=== PATIENT | female | born 1965 | race Caucasian/White ===

== ENCOUNTER 2016-11-28 16:51 | Emergency (ER) | payer SELFPAY ==
[~2016-11-28] VITALS: Ht 162.6 cm; Wt 61.2 kg
[~2016-11-28 16:51] MED LIST: CIPR500T94 PO; HYDR-971 PO; PHEN100T82 PO; PROM25TA10 PO
[2016-11-28 17:03] VITALS: BP 128/81
[2016-11-28] MEDS ORDERED: TETRACAINE 0.5% OPHTH SOLUTION 4ML BOTTLE. OD ONE (17:15)
[2016-11-28] MEDS ORDERED: EYE-STREAM OPHTH SOLUTION 120 ML BOTTLE. OD ONE (17:15)
[2016-11-28] MEDS ORDERED: FLUORESCEIN OPHTH TEST STRIP. OD ONE (17:15)
--- NOTE | 2016-11-28 17:19 | PHYS DOC ---
Past Medical History Past Medical History: No Pertinent History Past Surgical History: Tubal ligation Additional Past Surgical Histo: nasal surgery Alcohol Use: Occasionally Drug Use: None Adult General Chief Complaint Chief Complaint: EYE PROBLEMS HPI HPI Patient is a 51 year old female presents to the emergency department with a history of pain and drainage from the right eye since Sunday. Patient states she feels like there is something in it. She states she has irrigated the eye with lubricated drops, and allergy medication. She states she has a history of allergies. She states she has had yellow color discharge from the eye. Review of Systems Review of Systems Constitutional: Denies fever or chills [] Eyes: Denies change in visual acuity, redness, C/o right eye pain [] HENT: Denies nasal congestion or sore throat [] Respiratory: Denies cough or shortness of breath [] Cardiovascular: No additional information not addressed in HPI [] GI: Denies abdominal pain, nausea, vomiting, bloody stools or diarrhea [] : Denies dysuria or hematuria [] Musculoskeletal: Denies back pain or joint pain [] Integument: Denies rash or skin lesions [] Neurologic: Denies headache, focal weakness or sensory changes [] Endocrine: Denies polyuria or polydipsia [] Current Medications Current Medications Current Medications Medications (Trade) Dose Ordered Sig/Paul Start Time Stop Time Status Last Admin Dose Admin Balanced Salt Solution (Eye-Stream) 120 ml 1X ONCE 11/28/16 17:15 11/28/16 17:17 DC 11/28/16 17:22 120 ML Fluorescein Sodium (Ful-Filomena) 1 strip 1X ONCE 11/28/16 17:15 11/28/16 17:17 DC 11/28/16 17:22 1 STRIP Tetracaine HCl (Tetracaine) 1 drop 1X ONCE 11/28/16 17:15 11/28/16 17:17 DC 11/28/16 17:15 1 DROP Allergies Allergies Allergies Coded Allergies Type Severity Reaction Last Updated Verified No Known Drug Allergies 01/06/16 No Physical Exam Physical Exam Constitutional: Well developed, well nourished, no acute distress, non-toxic appearance. [] HENT: Normocephalic, atraumatic, bilateral external ears normal, oropharynx moist, no oral exudates, nose normal. [] Eyes: PERRLA, EOMI, conjunctiva normal, no discharge. [] Neck: Normal range of motion, no tenderness, supple, no stridor. [] Cardiovascular:Heart rate regular rhythm, no murmur [] Lungs & Thorax: Bilateral breath sounds clear to auscultation [] Skin: Warm, dry, no erythema, no rash. [] Back: No tenderness Extremities: No tenderness, no cyanosis, no clubbing, ROM intact, no edema. [] Neurologic: Alert and oriented X 3, normal motor function, normal sensory function, no focal deficits noted. [] Psychologic: Affect normal, judgement normal, mood normal. [] Current Patient Data Vital Signs Vital Signs Date Time Temp Pulse Resp B/P (MAP) Pulse Ox O2 Delivery O2 Flow Rate FiO2 11/28/16 17:03 97.8 91 18 97 Room Air 97.8 EKG EKG [] Radiology/Procedures Radiology/Procedures [] Course & Med Decision Making Course & Med Decision Making Pertinent Labs and Imaging studies reviewed. (See chart for details) Tetracaine placed in the right eye with upper eye lid inverted with no foreign body noted. No fluorescein uptake noted. Eye was irrigated with eye stream. Patient will be discharge home with eye drops. Patient will also recommended to followup with ophthalmology tomorrow. Patient was provided signs and symptoms to return to the emergency department. Patient agrees with discharge instructions, treatment regimen and followup recommendations. [] Dragon Disclaimer Dragon Disclaimer This electronic medical record was generated, in whole or in part, using a voice recognition dictation system. Departure Departure Impression: Primary Impression: Irritation of right eye Disposition: HOME, SELF-CARE Condition: STABLE Referrals: NO PCP (PCP) Es MISHRA MD Patient Instructions: Eye - Viral Conjunctivitis, Eyedrops Additional Instructions: Keep the eye clean and dry Good handwashing when touching the eye Medication as prescribed Followup with ophthalmology in 24 hours Return to emergency department as needed for signs and symptoms that become worse Scripts Ofloxacin (OCUFLOX) 5 Ml Drops 1-2 DROP OS BID, #[address] in the right eye for the next 7 days Prov: FARAZ GARVIN APRN 11/28/16 FARAZ GARVIN APRN Nov 28, 2016 17:19
[2016-11-28] MEDS ORDERED: OFLO5DRO OS (17:41)
== END 2016-11-28 17:54 | disposition home or self-care (01) ==
LOC: ER 16:51
DX: H57.8 Other specified disorders of eye and adnexa (principal); H57.11 Ocular pain, right eye
CPT/HCPCS: 99283

== ENCOUNTER 2019-05-29 16:19 | Emergency (ER) | payer SELFPAY ==
[~2019-05-29] VITALS: Ht 162.6 cm; Wt 68.0 kg
[~2019-05-29 16:19] MED LIST changes: +HYDR-3164 PO; -HYDR-971 PO; +OFLO5DRO OS
[2019-05-29 16:25] VITALS: BP 144/98
[2019-05-29] MEDS ORDERED: LIDOCAINE 2% 20 ML VIAL. IJ STA (16:36)
--- NOTE | 2019-05-29 16:40 | PHYS DOC ---
Past Medical History Past Medical History: No Pertinent History Past Surgical History: Tubal ligation Additional Past Surgical Histo: nasal surgery Alcohol Use: Occasionally Drug Use: None Adult General Chief Complaint Chief Complaint: HEADACHE HPI HPI Patient is a 53 year old female who presents with headache and neck pain that started yesterday. The patient states that she's been under extreme amount of stress as her dog out last night. She rates her pain as 8 out of 10 in severity and sharp. She denies any fevers or any other symptoms. She states the headache is located in the left frontal area the head, and is also allergic in the posterior right lower portion of the head. The patient also states she's been having right shoulder pain. Review of Systems Review of Systems Constitutional: Denies fever or chills [] Eyes: Denies change in visual acuity, redness, or eye pain [] HENT: Denies nasal congestion or sore throat [] Respiratory: Denies cough or shortness of breath [] Cardiovascular: No additional information not addressed in HPI [] GI: Denies abdominal pain, nausea, vomiting, bloody stools or diarrhea [] : Denies dysuria or hematuria [] Musculoskeletal: Reports R shoulder pain. Integument: Denies rash or skin lesions [] Neurologic: Reports headache, denies focal weakness or sensory changes [] Endocrine: Denies polyuria or polydipsia [] Complete systems were reviewed and found to be within normal limits, except as documented in this note. Current Medications Current Medications Current Medications Medications (Trade) Dose Ordered Sig/Paul Start Time Stop Time Status Last Admin Dose Admin Lidocaine HCl 20 ml 1X STAT 05/29/19 16:36 05/29/19 16:39 DC 05/29/19 16:51 20 ML Allergies Allergies Allergies Coded Allergies Type Severity Reaction Last Updated Verified codeine Allergy Unknown 05/29/19 Yes Physical Exam Physical Exam Constitutional: Well developed, well nourished, no acute distress, non-toxic appearance. [] HENT: Normocephalic, atraumatic, bilateral external ears normal, oropharynx moist, no oral exudates, nose normal. [] Eyes: PERRLA, EOMI, conjunctiva normal, no discharge. [] Neck: Normal range of motion, no tenderness, supple, no stridor. [] Cardiovascular:Heart rate regular rhythm, no murmur [] Lungs & Thorax: Bilateral breath sounds clear to auscultation [] Abdomen: Bowel sounds normal, soft, no tenderness, no masses, no pulsatile masses. [] Skin: Warm, dry, no erythema, no rash. [] Back: The patient has a trigger point to the right trapezoid muscle. Extremities: No tenderness, no cyanosis, no clubbing, ROM intact, no edema. [] Neurologic: Alert and oriented X 3, normal motor function, normal sensory function, no focal deficits noted. [] Psychologic: Affect normal, judgement normal, mood normal. [] Current Patient Data Vital Signs Vital Signs Date Time Temp Pulse Resp B/P (MAP) Pulse Ox O2 Delivery O2 Flow Rate FiO2 05/29/19 16:25 98.0 88 18 144/98 (113) 97 Room Air 98.0 EKG EKG [] Radiology/Procedures Radiology/Procedures [] Course & Med Decision Making Course & Med Decision Making Pertinent Labs and Imaging studies reviewed. (See chart for details) Will order lidocaine. Will do trigger point injection and intranasal lidocaine to see if can resolve symptoms. Gave the patient intranasal lidocaine (2 mL) for her frontal headache. The patient intranasal lidocaine caused her pain to go down from 8 to a 3. Also performed a trigger point injection (0.5 mL) on her trapezius muscle. This made her posterior headache disappear. Discussed with patient weighs that she can help her musculoskeletal pain. Discussed taking ibuprofen 4 mg every 6 hours. Also discussed using a foam roller. Dragon Disclaimer Dragon Disclaimer This electronic medical record was generated, in whole or in part, using a voice recognition dictation system. Departure Departure Impression: Primary Impression: Acute tension headache Additional Impression: Musculoskeletal pain Disposition: 01 HOME, SELF-CARE Condition: STABLE Referrals: NO PCP (PCP) Patient Instructions: Tension Headache Additional Instructions: Thank you for visiting [facility]. We appreciate you trusting us with your care. If any additional problems come up don't hesitate to return to visit us. Please follow up with your primary care provider so they can plan additional care if needed and know about the problem that you had. If symptoms worsen come back to the Emergency Department. Any concerning symptoms that start such as chest pain, shortness of air, weakness or numbness on one side of the body, running high fevers or any other concerning symptoms return to the ER. As we discussed please take ibuprofen 40 mg every 6 hours. This will help inflammation. Also please do muscle exercises on your muscle to keep loose. Problem Qualifiers Primary Impression: Acute tension headache Intractability: not intractable Qualified Codes: G44.209 - Tension-type headache, unspecified, not intractable CASI GÓMEZ APRN May 29, 2019 16:40
== END 2019-05-29 17:01 | disposition home or self-care (01) ==
LOC: ER 16:19
DX: G44.209 Tension-type headache, unspecified, not intractable (principal); M25.511 Pain in right shoulder; M54.2 Cervicalgia; Z98.51 Tubal ligation status; Z98.890 Other specified postprocedural states; Z88.5 Allergy status to narcotic agent
CPT/HCPCS: 20552; 99284; J2001